=== PATIENT | female | born 1955 | race Caucasian/White ===

== ENCOUNTER 2023-02-20 08:15 | Outpatient (CLI) | payer MEDICARE, BC, SELFPAY | END 2023-02-20 08:16 | disposition home or self-care (01) | LOC: NFLDREF 02-21 15:02 | PROVIDERS: PCP Family Medicine; Referring Provider Family Medicine; Visit Provider Family Medicine | DX: E03.9 Hypothyroidism, unspecified (principal) | CPT/HCPCS: 84439; 84443 ==

== ENCOUNTER 2023-05-12 08:08 | Outpatient (CLI) | payer MEDICARE, BC, SELFPAY | END 2023-05-12 08:09 | disposition home or self-care (01) | LOC: NFLDREF 05-13 13:03 | PROVIDERS: PCP Family Medicine; Referring Provider Family Medicine; Visit Provider Family Medicine | DX: E03.9 Hypothyroidism, unspecified (principal) | CPT/HCPCS: 84443 ==

== ENCOUNTER 2024-02-21 08:15 | Outpatient (CLI) | payer MEDICARE, BC, SELFPAY ==
--- OUTSIDE RECORDS SUMMARY | 2024-02-28 14:07 | XMS_ITS | Referral Summary ---
Author Organization [facility] Address [address] [place] [address] Care Team Providers Care Precipitator Operator Name Role Phone Unavailable Primary Care Provider Unavailabl e Source Comments Patient records contain information from all sites at [facility]. For routine questions regarding patient records, call [phone] during business hours, M-F 8:00 AM - 5:00 PM Central Time. Record requests for emergency care only can be directed to [phone] at any time.[facility] Encounters Date Type Department Care Team Description 01/22/2024 8:45 AM CDT Office Visit Department of Dermatology in [address] [phone] Caden Higuera M.D. Keratosis Actinic (Primary Dx); Nevi Multiple; Keratosis Seborrheic Discharge Disposition: Home or Self Care from Last 3 Months Allergies Active Allergy Reactions Criticality Noted Date Comments Codeine GI intolerance Low 06/12/2020 Medications Medication Sig Dispensed Refills Start Date End Date Status levothyroxine (SYNTHROID) 88 mcg tablet Take 1 tablet by mouth daily. 03/16/2017 Active cholecalciferol (cholecalciferol) 1,000 Unit tablet Take 3 tablets by mouth every other day. 03/16/2017 Active lisinopril (PRINIVIL,ZESTRIL) 5 mg tablet Take 1 tablet by mouth daily. 03/16/2017 Active calcium carbonate/vitamin D3 (CALCIUM 600 + D,3, ORAL) One tablet by mouth every other day; Strength Unknown 12/29/2010 Active acetaminophen (TYLENOL) 500 mg tablet Take 2 tablets (1,000 mg total) by mouth every 6 (six) hours. 30 tablet 07/21/2018 Active Additional Information Patient not taking.Reported on 01/22/2024 sennosides-docusat e sodium (SENOKOT-S) 8.6-50 mg per tablet Take 1 tablet by mouth 2 (two) times a day. 30 tablet 07/21/2018 Active Additional Information Patient not taking.Reported on 01/22/2024 oxyCODONE (ROXICODONE) 5 mg immediate release tabletIndications: Acute Pain Exception Indication: Acute Pain Exception. Take 1-2 tablets every 4 hours for pain not controlled by Tylenol. 20 tablet 07/21/2018 Active Additional Information Patient not taking.Reported on 01/22/2024 cefadroxil (DURICEF) 500 mg capsule Take 1 capsule (500 mg total) by mouth 2 (two) times a day. Take until drains removed. 30 capsule 1 07/21/2018 Active Additional Information Patient not taking.Reported on 01/22/2024 montelukast (SINGULAIR) 10 mg tablet Take 1 tablet (10 mg total) by mouth at bedtime. 42 tablet 07/25/2018 Active mupirocin (BACTROBAN) 2 % ointment 07/11/2018 Active pimecrolimus (ELIDEL) 1 % creamIndications:R osacea Apply 1 application topically 2 (two) times a day. For rosacea. 30 g 3 09/06/2018 Active amoxicillin (AMOXIL) 500 mg tablet Take 1 tablet (500 mg total) by mouth 4 (four) times a day as needed (Take 4 tablets one hour before dental procedures) for up to 1 dose. 8 tablet 5 12/14/2018 Active Additional Information Patient not taking.Reported on 01/22/2024 cholecalciferol (VITAMIN D3) 50 mcg (2,000 Unit) tablet Take 2,000 Units by mouth as directed. Every other day Active EPINEPHrine 0.3 mg/0.3 mL injection syringe Once 02/21/2020 Active levothyroxine (SYNTHROID, LEVOTHROID) 100 mcg tablet Active multivitamin capsule Take 1 capsule by mouth daily. Multivitamin includes, fish oil, tumeric, vitamin b and other vitamins Active calcium carbonate-vitamin D3 (Calcium 500 + D) 1,250 mg (500 mg calcium)-5 mcg (200 Unit) per tablet Take 1 tablet by mouth daily with breakfast. Active Hospital, Clinic, or Other Facility Administered Medication Ordered Dose Route Frequency Start Date End Date Status lidocaine-EPINEPHrine 1%-1:200,000 injection 2-50 mL (XYLOCAINE W/EPI) 2 - 50 mL inj As needed 06/28/2019 Acti ve fsbjsoptphr-pipxinpng-SCXIXSA rine 0.25%-1%-1:200,000 injection 2-25 mL 2 - 25 mL inj As needed 06/28/2019 Active Active Problems Problem Noted Date Diagnosed Date Hypertension NOS 07/20/2018 Pectus Excavatum 07/20/2018 Scoliosis 07/20/2018 Contracture Breast Implant Initial 06/25/2018 Overview: Added automatically from request for surgery [id number] Immunizations Name Administration Dates Next Due influenza vaccine quad (FLUZ ONE/FLUARIX) (6 months and older)(PF) 06/22/2018 Social History Tobacco Use Types Packs/Day Years Used Date Smoking Tobacco: Never Smokeless Tobacco: Never Tobacco Cessation:Counseling Given: Not Answered Alcohol Use Standard Drinks/Week Comments Yes 0 (1 standard drink = 0.6 oz pur e alcohol) per week [facility] Utilities Answer Date Recorded In the past 12 months has [employer], gas, oil, or water [employer] threatened to shut off services in your home? No 01/17/2024 Humiliation, Afraid, Rape, and Kick questionnair e Answer Date Recorded Within the last year, have y ou been afraid of your partner or ex-partner? No 11/09/2022 Within the last year, have y ou been humiliated or emotionally abused in other ways by your partner or ex-partner? No Within the last year, have y ou been kicked, hit, slapped, or otherwise physically hurt by your partner or ex-partner? No 11/09/2022 Within the last year, have y ou been raped or forced to have any kind of sexual activity by your partner or ex-partner? No 11/09/2022 Social Connection and Isolat ion Panel [NHANES] Answer Date Recorded In a typical week, how many times do you talk on the phone with family, friends, or neighbors? More than three times a week 11/09/2022 How often do you get togethe r with friends or relatives? Three times a week 11/09/2022 How often do you attend chur or mosque services? Patient declined 11/09/2022 Do you belong to any clubs o r organizations such as gnosticist groups, unions, fraternal or athletic groups, or school groups? Yes 11/09/2022 How often do you attend meet ings of the clubs or organizations you belong to? More than 4 times per year 11/09/2022 Are you , , di vorced, , never , or living with a partner? 11/09/2022 AUDIT-C Answer Date Recorded Q1: How often do you have a drink containing alc ohol? Monthly or less 11/09/2022 Q2: How many drinks containi ng alcohol do you have on a typical day when you are drinking? 1 or 2 11/09/2022 Q3: How often do you have si x or more drinks on one occasion? Never 11/09/2022 Overall Financial Resource Strain (CARDIA) Answe r Date Recorded How hard is it for you to pa y for the very basics like food, housing, medical care, and heating? Not hard at all 11/09/2022 [facility] - Occupational Stress Questionnaire Answer Date Recorded Do you feel stress - tense, restless, nervous, or anxious, or unable to sleep at night because your mind is troubled all the time - these days? Only a little 11/09/2022 Exercise Vital Sign Answer Date Recorde d On average, how many days pe r week do you engage in moderate to strenuous exercise (like a brisk walk)? 5 days 01/17/2024 On average, how many minutes do you engage in exercise at this level? 90 min 01/17/2024 Hunger Vital Sign Answer Date Recorded Within the past 12 months, y ou worried that your food would run out before you got the money to buy more. Never true 01/17/20 24 Within the past 12 months, t he food you bought just didn't last and you didn't have money to get more. Never true 01/17/2024 PRAPARE - Transportation Answer Date Re corded In the past 12 months, has l ack of transportation kept you from medical appointments or from getting medications? No 01/02 In the past 12 months, has l ack of transportation kept you from meetings, work, or from getting things needed for daily living? No 01/17/2024 Nutrition Answer Date Recorded On average, how many serving s of fruits and vegetables do you eat per day (serving size is equal to 1 cup or approximately the size of a tennis ball)? 3-5 01/17/2024 Dental Answer Date Recorded Dental: Regular Dentist Yes 11/10/19 Employment Answer Date Recorded Employment status Retired 01/17/2024 Housing Stability Answer Date Recorded What is your living situation today? I have a [facility] place to live 01/17/2024 Education Answer Date Recorded What is the highest level of school you have completed or the highest degree you have received? Bachelor's degree (e.g., BA, AB, BS) 11/09/2022 Sex and Gender Information Value Date Recorded Sex Assigned at Female 06/21/2018 7:48 PM CDT Gender Identity Female 06/21/2018 7:48 PM CDT Sexual Orientation Straight 06/21/2018 7: 48 PM CDT Last Filed Vital Signs Vital Sign Reading Time Taken Comments Blood Pressure 160/88 06/28/2019 12:00 PM CDT Pulse 71 06/28/2019 12:00 PM CDT Temperature 36.8 ??C (98.24 ??F) 07/21/2018 12:15 PM PREFITTER Respiratory Rate 16 07/21/2018 12:15 PM PREFITTER Oxygen Saturation 99% 07/21/2018 12:15 PM PREFITTER Inhaled Oxygen Concentration - - Weight 54.6 kg (120 lb 5.9 oz) 07/20/2018 9:43 A M PREFITTER Height 163 cm (5' 4.17) 07/20/2018 9:43 AM PREFITTER Body Mass Index 20.55 07/20/2018 9:43 AM PREFITTER Plan of Treatment Upcoming Encounters Date Type Department Care Team (Late st Contact Info) Description 08/05/2024 8:15 AM PREFITTER Office Visit Department of Dermatology in [address] [phone] Caden Higuera M.D. [address] [place] [address] [phone] (work) Discharge Disposition: Home or Self Care Medical Devices Implanted Type Area Museum Librarian Device Identifier Shelf Expiration Date Model / Serial / Lot Jd Ngo Cohesive Breast Implant Implanted:Qt y: 1 on 07/20/2018 by Amelia Leal M.D., D.D.S. at [facility] Breast Implant Right: Breast [employer] [id number] 03/30/2023 [id number]-285 / [id number] / Clp Hrzn Ti 6 Clp Md Mejia - [id number] Implanted:Qt y: 1 on 07/20/2018 by Amelia Leal M.D., D.D.S. at [facility] Hardware e.g. pins/screws /rods Right: Breast [employer] [id number] 03/27/2023 [id number] / / [id number] Clp Hrzn Ti 6 Clp Sm Red - [id number] Implanted:Qt y: 1 on 07/20/2018 by Amelia Leal M.D., D.D.S. at [facility] Hardware e.g. pins/screws /rods Right: Breast Weck (Div of [employer]) [id number] 12/15/2022 [id number] / / [id number] Clp Hrzn Ti 6 Clp Md Mejia - [id number] Implanted:Qt y: 1 on 07/20/2018 by Amelia Leal M.D., D.D.S. at [facility] Hardware e.g. pins/screws /rods Right: Breast [employer] [id number] 03/14/2023 [id number] / / [id number] Clp Hrzn Ti 6 Clp Sm Red - [id number] Implanted:Qt y: 1 on 07/20/2018 by Amelia Leal M.D., D.D.S. at [facility] Hardware e.g. pins/screws /rods Right: Breast Weck (Div of [employer]) [id number] 12/15/2022 1201 / / [id number] Explanted Type Area Museum Librarian Device Identifier Shelf Expiration Date Model / Serial / Lot Breast Implant Explanted:Qty : 1 on 07/20/2018 by Amelia Leal M.D., D.D.S. at [facility] Breast Implant Right: Breast Procedures Procedure Name Priority Date/Time Associated Diagnosis Comments BI BREAST SCREENING BILATERAL WITH TOMOSYNTHESIS RAD - Routine (most inpatients and all outpatients) 08/21/2023 1:42 PM PREFITTER Screening Mammogram Breast Cancer HEMOGLOBIN A1C, B Routine 06/22/2018 10: 57 AM CDT Counseling Preventive from Last 3 Months or Most Recently Relevant to Health Maintenance Results * BI Breast Screening Bilateral with Tomosynthesis (08/21/2023 1:42 PM PREFITTER) Anatomical Region Laterality Modality Breast, Breast Imaging RST L OS, Breast Imaging ARZ LOS, Breast Imaging FLA LOS Bilateral Mammography Impressions 08/24/2023 10:00 AM PREFITTER Negative. RECOMMENDATION: ??Annual Screening Mammogram ASSESSMENT: ??BI-RADS: 1: Negative. Narrative 08/24/2023 10:00 AM PREFITTER EXAM: ??BI BREAST SCREENING BILATERAL WITH TOMOSYNTHESIS Current study was evaluated with a Computer Aided Detection (CAD) system. INDICATION: ??Screening mammogram. COMPARISON: ??Prior exam(s) were available and reviewed for comparison. DENSITY: ??b. There are scattered areas of fibroglandular density. FINDINGS: ??No findings of malignancy. ??No significant change since prior exam. Right breast implant. Procedure Note Fabiola White M.D. - 08/24/2023 EXAM: BI BREAST SCREENING BILATERAL WITH TOMOSYNTHESIS Current study was evaluated with a Computer Aided Detection (CAD) system. INDICATION: Screening mammogram. COMPARISON: Prior exam(s) were available and reviewed for comparison. DENSITY: b. There are scattered areas of fibroglandular density. FINDINGS: No findings of malignancy. No significant change since priorexam. Right breast implant. IMPRESSION: Negative. RECOMMENDATION: Annual Screening Mammogram ASSESSMENT: BI-RADS: 1: Negative. Meek Romeo M.D. IMG BI PROCEDUR ES * Hemoglobin A1c (06/22/2018 10:57 AM CDT) Hemoglobin A1c, B 5.4 4.0 - 5.6 % 06/22/2018 11:45 AM CDT [facility] Blood (Blood, Venous) 06/22/2018 10:57 AM CDT 06/22/2018 11:18 AM CDT Sienna Stephens M.D., M.P.H. LAB BLOOD A DD-ON [facility] [address] [place] [address], [facility] from Last 3 Months or Most Recently Relevant to Health Maintenance
--- OUTSIDE RECORDS SUMMARY | 2024-02-28 14:07 | XMS_ITS | Clinical Summary ---
Author Organization [facility] Address [place], [place] [address] Care Team Providers Care Cable Rigger Name Role Phone Ted Marshall MD Primary Care Provider Family History Medical History Relation Name Comments Cancer-prostate Brother early 40's y rs old Cancer-breast Paternal Grandmother post m yolande Cancer No Family History Cancer-colon No Family History Cancer-ovarian No Family History Relation Name Status Comments Brother Paternal Grandmother Social History Tobacco Use Types Packs/Day Years Used Date Smoking Tobacco: Never Assessed Sex and Gender Information Value Date Recorded Sex Assigned at Not on file Gender Identity Not on file Sexual Orientation Not on file Obstetrics History Plan of Treatment Not on file Care Teams Cable Rigger Relationship Specialty Start Date End Date Ted Marshall MD [address] [place] [phone] PCP - General 03/09/06
--- OUTSIDE RECORDS SUMMARY | 2024-02-28 14:07 | XMS_ITS ---
Author Organization [facility] Address [address] [place] [address] Care Team Providers Care Rand Cementer Name Role Phone Unavailable Unavailable Unavailable Surgery Details Not on file Complications Check Surgery Details section. Procedure Estimated Blood Loss Check Surgery Details section. Procedure Findings Check Surgery Details section. Procedure Specimens Taken Check Surgery Details section.
--- OUTSIDE RECORDS SUMMARY | 2024-02-28 14:07 | XMS_ITS | Encounter Summary ---
Author Organization [facility] Address [address] [place] [address] Care Team Providers Care Operations Forester Name Role Phone Unavailable Primary Care Provider Unavailabl e Reason for Referral * Outpatient (Routine) - Authorized Specialty Diagnoses / Procedures Referred By Max deras Referred To Contact Dermatology Caden Higuera M.D. [address] [place] [phone] [facility] Referral ID Status Reason Start Date Expiration Date V isits Requested Visits Authorized [id number] Authorized 01/22/2024 07/23/2025 1 1 Scheduling Instructions skin cancer recheck in 6-12 months Reason for Visit * Reason Comments Skin Check Encounter Details Date Type Department Care Team ([facility] st Contact Info) Description 01/22/2024 8:45 AM CDT Office Visit Department of Dermatology in [address] [phone] Caden Higuera M.D. [address] [place] [phone] Keratosis Actinic (Primary Dx); Nevi Multiple; Keratosis Seborrheic Discharge Disposition: Home or Self Care Social History Tobacco Use Types Packs/Day Years Used Date Smoking Tobacco: Never Smokeless Tobacco: Never Alcohol Use Standard Drinks/Week Comments Yes 0 (1 standard drink = 0.6 oz pur e alcohol) per week [facility] Utilities Answer Date Recorded In the past 12 months has th e electric, gas, oil, or water company threatened to shut off services in your [...] week 11/09/2022 How often do you attend [facility] or [facility] services? Patient declined 11/09/2022 Do you belong to any clubs o r organizations such as sikh groups, unions, fraternal or athletic groups, or [...] and heating? Not hard at all 11/09/2022 [facility] - Occupational Stress [...] Date Recorded Dental: Regular Dentist Yes 11/10/19 23 Employment Answer Date Recorded Employment status Retired 01/17/2024 Housing Stability Answer Date Recorded What is your living situation today? I have a [facility] place to live 01/17/2024 Education Answer Date Recorded What is the highest level of school you have completed or the highest degree you have received? Bachelor's degree (e.g., BA, AB, BS) 11/09/2022 Sex and Gender Information Value Date Recorded Sex Assigned at Female 06/21/2018 7:48 PM CDT Gender Identity Female 06/21/2018 7:48 PM CDT Sexual Orientation Straight 06/21/2018 7: 48 PM CDT documented as of this encounter Progress Notes * Caden Higuera M.D. - 01/22/2024 8:45 AM CDT SUBJECTIVE CHIEF COMPLAINT / REASON FOR VISIT Full skin cancer screening HISTORY OF PRESENT ILLNESS Jessica Stone is a pleasant 69 y.o. female who presents for a full skin cancer screening. The patientwas last seen by me in Dermatology clinic on 11/15/22. 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 Park at [facility]. She denies a personal or family history for melanoma. She uses sunscreen. She would particularly like us to evaluate a lesion involving the right upper central forehead today. MEDICAL HISTORY 1. Left dorsal hand: History of squamous cell carcinoma, status post wide local excision in 2008 byDr. Ellington at [facility] 2. 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 Park at [facility] 3. Negative for melanoma FAMILY HISTORY Negative for melanoma OBJECTIVE PHYSICAL EXAMINATION General: Awake, alert, in no acute distress, and with appropriate affect. Eyes: No scleral injection or icterus. No eyelid abnormalities. Lymph: No lower extremity edema. Skin: I have examined the scalp, face, neck, chest, abdomen, back, bilateral upper extremities, andbilateral lower extremities. My scribe (Francisca) served as a bear keeper for the entirety of the exam. Examination of the left dorsal hand and midline forehead reveals no evidence for recurrence of squamous cell carcinoma x 2. Examination today reveals actinic keratoses, including 1 right upper central forehead, 1 right cheek, 1 left cheek and 1 left forearm. Examination of the face, trunk and extremities reveals multiple benign-appearing nevi, lentigines and seborrheic keratoses. Examination today reveals no suspicious lesions for skin cancer. ASSESSMENT / PLAN #1 Right upper central forehead, right cheek, left cheek and left forearm: Actinic keratosis x 4 Given the precancerous nature of this lesion(s), treatment is medically indicated. After discussionof the risks, benefits and alternatives to treatment with cryotherapy, informed consent was obtained. We treated a total of four lesion(s) with two 10-second freeze-thaw cycles of liquid nitrogen cryotherapy. The patient tolerated the procedure well. Aftercare instructions were provided in written and verbal form to the patient. Should any of these lesions recur, the patient should return for biopsy or further evaluation. Follow up in 1-2 months for recheck if these areas do not complete resolve. #2 Face, trunk and extremities: Multiple nevi and lentigines The ABCDE criteria for melanoma was reviewed with the patient. None of the patient's nevi reach theclinical threshold for biopsy. I recommend continued sun protection, self-skin examinations, and observation. Should any of the patient's nevi change in size, color, texture, or shape or develop symptoms such as itching or bleeding, I recommend an immediate return visit for reassessment. #3 Face, trunk and extremities: Seborrheic keratosis The benign nature of the skin lesion(s) was discussed with the patient. No treatment is required. Irecommend continued observation. Should this lesion change in size, color, texture, or shape or develop symptoms such as itching or bleeding, I recommend an immediate return visit for reassessment. #4 Left dorsal hand: History of squamous cell carcinoma, status post wide local excision in 2008 byDr. Ellington at [facility], no recurrence No clinical evidence of local recurrence today. Recommended monthly self-skin examinations to evaluate for new, changing, symptomatic, or otherwise worrisome lesions. Signs and symptoms of skin cancer discussed. Photoprotection was recommended. Return to Dermatology in 6-12 months for a full skin exam or immediately if any new or changing lesions are noted. #5 Midline forehead: History of pigmented seborrheic keratosis and well- differentiated superficially transected squamous cell carcinoma, status post Mohs surgery on 06/28/[address] Park at [facility], no recurrence No clinical evidence of local recurrence today. Recommended monthly self-skin examinations to evaluate for new, changing, symptomatic, or otherwise worrisome lesions. Signs and symptoms of skin cancer discussed. Photoprotection was recommended. Return to Dermatology in 6-12 months for a full skin exam or immediately if any new or changing lesions are noted. PATIENT EDUCATION: Ready to learn. No apparent learning barriers were identified. Learning preferences include listening. Explained diagnosis and treatment plan; patient/guardian of patient expressed understanding of the content. By signing my name below, I, Francisca James, attest that this documentation has been prepared underthe direction and in the presence of Caden Higuera M.D. Electronically Signed: elisha Murrell. 01/22/2024. 8:43 AM CDT. I, Caden Higuera M.D., personally performed the services described in this documentation. All medical record entries made by the scribe were at my direction and in my presence. I have reviewed the chart and discharge instructions (if applicable) and agree that the record reflects my personal performance and is accurate and complete. Caden Higuera M.D. Scribed for Caden Higuera M.D. by Francisca James, on 01/22/2024, 9:11 AM CDT. documented in this encounter Plan of Treatment Upcoming Encounters Date Type Department Care Team (Late st Contact Info) Description 08/05/2024 8:15 AM WOOL HAT FINISHER Office Visit Department of Dermatology in [address] [phone] Caden Higuera M.D. [address] [place] [address] Discharge Disposition: Home or Self Care Scheduled Referrals Name Type Priority Associated Diagnoses Order Schedule Dermatology office visit (clinic) Outpatient Referral Routine Expected: 07/24/2024 (Approximate), Expires: 04/23/2025 documented as of this encounter Visit Diagnoses Diagnosis Keratosis Actinic- Primary Nevi Multiple Keratosis Seborrheic documented in this encounter
--- OUTSIDE RECORDS SUMMARY | 2024-02-28 14:07 | XMS_ITS | Clinical Summary ---
Author Organization [facility] Address [address] [place] [address] Care Team Providers Care Radiology Scheduler Name Role Phone Unavailable Primary Care Provider Unavailabl e Source Comments Patient records contain information from all sites at [facility]. For routine questions regarding patient records, call [phone] during business hours, M-F 8:00 AM - 5:00 PM Central Time. Record requests for emergency care only can be directed to [phone] at any time.[facility] Allergies Active Allergy Reactions Criticality Noted Date [...] mL inj As needed 06/28/2019 Acti ve bkgzdgylafz-rwvxiextb-ZUTSOKY rine 0.25%-1%-1:200,000 injection 2-25 mL 2 - 25 mL inj As needed 06/28/2019 Active Active Problems Problem Noted Date Diagnosed Date Hypertension NOS 07/20/2018 Pectus Excavatum 07/20/2018 Scoliosis 07/20/2018 Contracture Breast Implant Initial 06/25/2018 Overview: Added automatically from request for surgery [id number] Encounters Date Type Department Care Team Description 01/22/2024 8:45 AM CDT Office Visit Department of Dermatology in [address] [phone] Caden Higuera M.D. Keratosis Actinic (Primary Dx); Nevi Multiple; Keratosis Seborrheic Discharge Disposition: Home or Self Care from Last 3 Months Immunizations Name Administration Dates Next Due influenza vaccine quad (FLUZ ONE/FLUARIX) (6 months and older)(PF) 06/22/2018 Family History Medical History Relation Name Comments Squamous cell carcinoma Brother Coronary artery disease Father krissy Dementia Father krissy Hypertension Father krisys Coronary artery disease Mother елена Hypertension Mother елена Thyroid disease Mother елена Ovarian cancer Paternal Grandmother Hypertension Sister derian Thyroid disease Sister derian Relation Name Status Comments Brother Father krissy Mother елена Paternal Grandmother Other Age 68 Sister derian Social History Tobacco Use Types Packs/Day Years Used Date Smoking Tobacco: Never Smokeless Tobacco: Never Tobacco Cessation:Counseling Given: Not Answered Alcohol Use Standard Drinks/Week Comments Yes 0 (1 standard drink = 0.6 oz pur e alcohol) per week [facility] Utilities Answer Date Recorded In the past 12 months has e [facility], oil, or water [employer] threatened to shut off services in your [...] week 11/09/2022 How often do you attend [facility] or confucianism services? Patient declined 11/09/2022 Do you belong to any clubs o r organizations such as episcopal groups, unions, fraternal or athletic groups, or [...] and heating? Not hard at all 11/09/2022 [facility] of Occupat ionri Health - Occupational Stress Questionnaire Answer Date [...] your living situation today? I have a [facility] place to live 01/17/2024 Education Answer Date [...] 36.8 ??C (98.24 ??F) 07/21/2018 12:15 PM RACETRACK STEWARD Respiratory Rate 16 07/21/2018 12:15 PM RACETRACK STEWARD Oxygen Saturation 99% 07/21/2018 12:15 PM RACETRACK STEWARD Inhaled Oxygen Concentration - - Weight 54.6 kg (120 lb 5.9 oz) 07/20/2018 9:43 A M RACETRACK STEWARD Height 163 cm (5' 4.17) 07/20/2018 9:43 AM RACETRACK STEWARD Body Mass Index 20.55 07/20/2018 9:43 AM RACETRACK STEWARD Plan of Treatment Upcoming Encounters Date Type Department Care Team (Late st Contact Info) Description 08/05/2024 8:15 AM RACETRACK STEWARD Office Visit Department of Dermatology in [address] [phone] Caden Higuera M.D. [address] [place] [address] Discharge Disposition: Home or Self Care Health Maintenance Due Date Last Done Comments Bone Density Scan (Osteoporo sis Screen) 1957 CT Colonography 1957 Cologuard 1957 Colonoscopy 1957 Colorectal Cancer Screening 1957 Creatinine Level (Kidney Fun ction Test) 1957 FIT 1957 Hepatitis C Screening 1957 Office Visit for Blood Press ure Check / Re-check 1957 Potassium Level 1957 Sodium Level 1957 Thyroid Stimulating Hormone (TSH) test for thyroid function 1957 Fasting Glucose for Diabetes Screening 06/22/2021 06/22/2018 COVID-19 Vaccine (2022-2 4 season) 2023 06/04/2022, 08/09/2021, 09/30/2020, Additional history exists Influenza Vaccine (#1) 2023 , 06/30/2021, 06/18/2021, Additional history exists Depression Screening (Annual PHQ-2) 09/04/2023 Fall Risk Screen (Annual) 09/04/2023 Mammogram 08/21/2024 08/21/2023, 12/0 05/2022, 08/11/2021, Additional history exists DTaP,Tdap,and Td Vaccines (2 - Td or Tdap) 01/01/2025 01/01/2015 Pneumococcal vaccine (65+ years) Completed 01/15/20, 01/01/2015 Zoster Vaccines Completed 07/06/2022, 03/28/2022 Cervical Cancer Screening Discontinued 02/02/2023, Medical Devices Implanted Type Area Floor Sweeper Device Identifier Shelf Expiration Date Model / Serial / Lot Jd Inspira Cohesive Breast Implant Implanted:Qt y: 1 on 07/20/2018 by Amelia Leal M.D., D.D.S. at [facility] Breast Implant Right: Breast [employer] [id number] 03/30/2023 SCX-285 / [id number] / Clp Hrzn Ti 6 Clp Mejia - [id number] Implanted:Qt y: 1 on 07/20/2018 by Amelia Leal M.D., D.D.S. at [facility] Hardware e.g. pins/screws /rods Right: Breast [employer] [id number] 03/27/2023 [id number] / / [id number] Clp Hrzn Ti 6 Clp Sm Red - [id number] Implanted:Qt y: 1 on 07/20/2018 by Amelia Leal M.D., D.D.S. at [facility] Hardware e.g. pins/screws /rods Right: Breast Weck (Div of [employer]) [id number] 12/15/2022 120 / / [id number] Clp Hrzn Ti 6 Clp Mejia - [id number] Implanted:Qt y: 1 on 07/20/2018 by Amelia Leal M.D., D.D.S. at [facility] Hardware e.g. pins/screws /rods Right: Breast [employer] [id number] 03/14/2023 [id number] / / [id number] Clp Hrzn Ti 6 Clp Sm Red - [id number] Implanted:Qt y: 1 on 07/20/2018 by Amelia Leal M.D., D.D.S. at [facility] Hardware e.g. pins/screws /rods Right: Breast Weck (Div of [employer]) [id number] 12/15/2022 120 / / [id number] Explanted Type Area Floor Sweeper Device Identifier Shelf Expiration Date Model / Serial / Lot Breast Implant Explanted:Qty : 1 on 07/20/2018 by Amelia Leal M.D., D.D.S. at [facility] Breast Implant Right: Breast Procedures Procedure Name Priority Date/Time Associated Diagnosis Comments BI BREAST SCREENING BILATERAL WITH TOMOSYNTHESIS RAD - Routine (most inpatients and all outpatients) 08/21/2023 1:42 PM RACETRACK STEWARD Screening Mammogram Breast Cancer HEMOGLOBIN A1C, B Routine 06/22/2018 10: 57 AM CDT Counseling Preventive from Last 3 Months or Most Recently Relevant to Health Maintenance Results * BI Breast Screening Bilateral with Tomosynthesis (08/21/2023 1:42 PM RACETRACK STEWARD) Anatomical Region Laterality Modality Breast, Breast Imaging RST L OS, Breast Imaging ARZ LOS, Breast Imaging FLA LOS Bilateral Mammography Impressions 08/24/2023 10:00 AM RACETRACK STEWARD Negative. RECOMMENDATION: ??Annual Screening Mammogram ASSESSMENT: ??BI-RADS: 1: Negative. Narrative 08/24/2023 10:00 AM RACETRACK STEWARD EXAM: ??BI BREAST SCREENING BILATERAL WITH TOMOSYNTHESIS [...] Screening Mammogram ASSESSMENT: BI-RADS: 1: Negative. Meek RAND BI PROCEDUR ES * Hemoglobin A1c (06/22/2018 10:57 AM CDT) Hemoglobin A1c, B 5.4 4.0 - 5.6 % 06/22/2018 11:45 AM CDT [facility] Blood (Blood, Venous) 06/22/2018 10:57 AM CDT 06/22/2018 11:18 AM CDT Sienna Stephens M.D., M.P.H. LAB BLOOD A DD-ON [facility] [address] from Last 3 Months or Most Recently Relevant to Health Maintenance
== END 2024-02-21 08:16 | disposition home or self-care (01) ==
LOC: NFLDREF 02-28 14:05
PROVIDERS: PCP Family Medicine; Referring Provider Family Medicine; Visit Provider Family Medicine
DX: E78.5 Hyperlipidemia, unspecified (principal); M81.0 Age-related osteoporosis without current pathological fracture; E03.9 Hypothyroidism, unspecified
CPT/HCPCS: 80061; 82306; 84443

== ENCOUNTER 2024-04-03 13:44 | Outpatient (CLI) | payer MEDICARE, BC, SELFPAY ==
--- OUTSIDE RECORDS SUMMARY | 2024-04-03 13:48 | XMS_ITS | Encounter Summary ---
Author Organization [facility] Address [address] [place] [address] Care Team Providers Care Supervisor Safety Deposit Name Role Phone Unavailable Primary Care Provider Unavailabl e Reason for Referral * Outpatient (Routine) - Authorized Specialty Diagnoses / Procedures Referred By Max deras Referred To Contact Dermatology Caden Higuera M.D. [address] [place] [phone] [facility] Referral ID Status Reason Start Date Expiration Date V isits Requested Visits Authorized [id number] Authorized 01/22/2024 07/23/2025 1 1 Scheduling Instructions skin cancer recheck in 6-12 months Reason for Visit * Reason Comments Skin Check Encounter Details Date Type Department Care Team ([facility] st Contact Info) Description 01/22/2024 8:45 AM CDT Office Visit Department of Dermatology in [address] [phone] Caden Higuera M.D. [address] [place] [phone] Keratosis Actinic (Primary Dx); Nevi Multiple; Keratosis Seborrheic Discharge Disposition: Home or Self Care Social History Tobacco Use Types Packs/Day Years Used Date Smoking Tobacco: Never Smokeless Tobacco: Never Alcohol Use Standard Drinks/Week Comments Yes 0 (1 standard drink = 0.6 oz pur e alcohol) per week [facility] Utilities Answer Date Recorded In the [...] week 11/09/2022 How often do you attend [facility] or orthodox services? Patient declined 11/09/2022 Do you belong to any clubs o r organizations such as jew groups, unions, fraternal or athletic groups, or [...] and heating? Not hard at all 11/09/2022 [facility] of Occupat ional Health - Occupational Stress [...] your living situation today? I have a [facility] place to live 01/17/2024 Education Answer [...] surgery on 06/28/[address] Park at [facility]. She denies a personal or family history for melanoma. She uses sunscreen. She would particularly like us to evaluate a lesion involving the right upper central forehead today. MEDICAL HISTORY 1. Left dorsal hand: History of squamous cell carcinoma, status post wide local excision in 2008 byDr. Ellington at [facility] 2. 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 Park at [facility] 3. Negative for melanoma FAMILY HISTORY Negative for melanoma OBJECTIVE PHYSICAL EXAMINATION General: Awake, alert, in no acute distress, and with appropriate affect. Eyes: No scleral injection or icterus. No eyelid abnormalities. Lymph: No lower extremity edema. Skin: I have examined the scalp, face, neck, chest, abdomen, back, bilateral upper extremities, andbilateral lower extremities. My scribe (Francisca) served as a spray painting machine operator for the entirety of the exam. Examination [...] local excision in 2008 byDr. Ellington at [facility], no recurrence No clinical evidence of local [...] surgery on 06/28/[address] Park at [facility], no recurrence No clinical evidence of local [...] st Contact Info) Description 08/05/2024 8:15 AM ELDER COUNSELOR Office Visit Department of Dermatology in [address] [phone] Caden Higurea M.D. [address] [place] [phone] Discharge Disposition: Home or Self Care Scheduled Referrals Name Type Priority Associated Diagnoses Order Schedule Dermatology office visit (clinic) Outpatient Referral Routine Expected: 07/24/2024 (Approximate), Expires: 04/23/2025 documented as of this encounter Visit Diagnoses Diagnosis Keratosis Actinic- Primary Nevi Multiple Keratosis Seborrheic documented in this encounter
--- OUTSIDE RECORDS SUMMARY | 2024-04-03 13:48 | XMS_ITS | Clinical Summary ---
Author Organization [facility] Address [address] [place] [address] Care Team Providers Care Correspondence Renew Clerk Name Role Phone Unavailable Primary Care Provider Unavailabl e Source Comments Patient records contain information from all sites at [facility]. For routine questions regarding patient records, call [phone] during business hours, M-F 8:00 AM - 5:00 PM Central Time. Record requests for emergency care only can be directed to [phone] at any time.[facility] Allergies Active Allergy Reactions Criticality Noted Date [...] mL inj As needed 06/28/2019 Acti ve olcrwnfsida-mjbkdebfu-DCRZKAK rine 0.25%-1%-1:200,000 injection 2-25 mL 2 - 25 mL inj As needed 06/28/2019 Active Active Problems Problem Noted Date Diagnosed Date Hypertension NOS 07/20/2018 Pectus Excavatum 07/20/2018 Scoliosis 07/20/2018 Contracture Breast Implant Initial 06/25/2018 Overview (06/25/2018): Added automatically from request for surgery [id number] Encounters Date Type Department Care Team Description 01/22/2024 8:45 AM CDT Office Visit Department of Dermatology in [address] [phone] Caden Higuera M.D. Keratosis Actinic (Primary Dx); Nevi Multiple; Keratosis Seborrheic Discharge Disposition: Home or Self Care from Last 3 Months Immunizations Name Administration Dates Next Due influenza vaccine quad (FLUZ ONE/FLUARIX) (6 months and older)(PF) 06/22/2018 Family History Medical History Relation Name Comments Squamous cell carcinoma Brother Coronary artery disease Father krissy Dementia Father krissy Hypertension Father krissy Coronary artery disease Mother елена Hypertension Mother [...] 0.6 oz pur e alcohol) per week [facility] Utilities Answer Date Recorded In the past 12 months has [facility] [employer], oil, or water [employer] threatened to shut off services in your [...] week 11/09/2022 How often do you attend [facility] or christian services? Patient declined 11/09/2022 Do you belong to any clubs o r organizations such as catholic groups, unions, fraternal or athletic groups, or [...] and heating? Not hard at all 11/09/2022 [facility] of Occupat ional Health - Occupational Stress [...] your living situation today? I have a [facility] place to live 01/17/2024 Education Answer [...] 36.8 ??C (98.24 ??F) 07/21/2018 12:15 PM POLICY SERVICES REPRESENTATIVE Respiratory Rate 16 07/21/2018 12:15 PM POLICY SERVICES REPRESENTATIVE Oxygen Saturation 99% 07/21/2018 12:15 PM POLICY SERVICES REPRESENTATIVE Inhaled Oxygen Concentration - - Weight 54.6 kg (120 lb 5.9 oz) 07/20/2018 9:43 A M POLICY SERVICES REPRESENTATIVE Height 163 cm (5' 4.17) 07/20/2018 9:43 AM POLICY SERVICES REPRESENTATIVE Body Mass Index 20.55 07/20/2018 9:43 AM POLICY SERVICES REPRESENTATIVE Plan of Treatment Upcoming Encounters Date Type Department Care Team (Late st Contact Info) Description 08/05/2024 8:15 AM POLICY SERVICES REPRESENTATIVE Office Visit Department of Dermatology in [address] [phone] Caden Higuera M.D. [address] [place] [address] Discharge Disposition: Home or Self Care Health [...] for Diabetes Screening 06/22/2021 06/22/2018 COVID-19 Vaccine ( - 2022-2 4 season) 2023 06/04/2022, 08/09/2021, 09/30/2020, Additional history exists Depression Screening (Annual PHQ-2) 09/04/2023 Fall Risk Screen (Annual) 09/04/2023 Influenza Vaccine (#1) 2024 , 06/30/2021, 06/18/2021, Additional history exists Mammogram 08/21/2024 08/21/2023, 1205/2022, 08/11/2021, Additional history exists DTaP,Tdap,and Td Vaccines (2 - Td or Tdap) 01/01/2025 01/01/2015 Pneumococcal vaccine (65+ years) Completed 01/15/20, 01/01/2015 Zoster Vaccines Completed 07/06/2022, 03/28/2022 Cervical Cancer Screening Discontinued 02/02/2023, Medical Devices Implanted Type Area Fastener Technologist Device Identifier Shelf Expiration Date Model / Serial / Lot Jd Inspira Cohesive Breast Implant Implanted:Qt y: 1 on 07/20/2018 by Amelia Leal M.D., D.D.S. at [facility] Breast Implant Right: Breast [employer] [id number] 03/30/2023 SCX-285 / [id number] / Clp Hrzn Ti 6 Clp Md Mejia - [id number] Implanted:Qt y: 1 on 07/20/2018 by Amelia Leal M.D., D.D.S. at [facility] Hardware e.g. pins/screws /rods Right: Breast [employer] [id number] 03/27/2023 [id number] / / [id number] Clp Hrzn Ti 6 Clp Sm Red - [id number] Implanted:Qt y: 1 on 07/20/2018 by Amelia Leal M.D., D.D.S. at [facility] Hardware e.g. pins/screws /rods Right: Breast Weck (Div of [employer]) [id number] 12/15/2022 120 / / [id number] Clp Hrzn Ti 6 Clp Md Mejia - [id number] Implanted:Qt y: 1 on 07/20/2018 by Amelia Leal M.D., D.D.S. at [facility] Hardware e.g. pins/screws /rods Right: Breast [employer] [id number] 03/14/2023 [id number] / / [id number] Clp Hrzn Ti 6 Clp Sm Red - [id number] Implanted:Qt y: 1 on 07/20/2018 by Amelia Leal M.D., D.D.S. at [facility] Hardware e.g. pins/screws /rods Right: Breast Weck (Div of [employer]) [id number] 12/15/2022 120 / / [id number] Explanted Type Area Fastener Technologist Device Identifier Shelf Expiration Date Model / Serial / Lot Breast Implant Explanted:Qty : 1 on 07/20/2018 by Amelia Leal M.D., D.D.S. at [facility] Breast Implant Right: Breast Procedures Procedure Name Priority Date/Time Associated Diagnosis Comments BI BREAST SCREENING BILATERAL WITH TOMOSYNTHESIS RAD - Routine (most inpatients and all outpatients) 08/21/2023 1:42 PM POLICY SERVICES REPRESENTATIVE Screening Mammogram Breast Cancer HEMOGLOBIN A1C, B Routine 06/22/2018 10: 57 AM CDT Counseling Preventive from Last 3 Months or Most Recently Relevant to Health Maintenance Results * BI Breast Screening Bilateral with Tomosynthesis (08/21/2023 1:42 PM POLICY SERVICES REPRESENTATIVE) Anatomical Region Laterality Modality Breast, Breast Imaging RST L OS, Breast Imaging ARZ LOS, Breast Imaging FLA LOS Bilateral Mammography Impressions 08/24/2023 10:00 AM POLICY SERVICES REPRESENTATIVE Negative. RECOMMENDATION: ??Annual Screening Mammogram ASSESSMENT: ??BI-RADS: 1: Negative. Narrative 08/24/2023 10:00 AM POLICY SERVICES REPRESENTATIVE EXAM: ??BI BREAST SCREENING BILATERAL WITH TOMOSYNTHESIS [...] - 5.6 % 06/22/2018 11:45 AM CDT [facility] [place] Blood (Blood, Venous) 06/22/2018 10:57 AM CDT 06/22/2018 11:18 AM CDT Sienna Stephens M.D., M.P.H. LAB BLOOD A DD-ON [facility] [place] [address] [place] [address], [facility] from Last 3 Months or Most Recently Relevant to Health Maintenance
--- OUTSIDE RECORDS SUMMARY | 2024-04-03 13:48 | XMS_ITS | Referral Summary ---
Author Organization [facility] Address [address] [place] [id number] Care Team Providers Care Acupuncture Physician Name Role Phone Unavailable Primary Care Provider Unavailabl e Source Comments Patient records contain information from all sites at [facility]. For routine questions regarding patient records, call [phone] during business hours, M-F 8:00 AM - 5:00 PM Central Time. Record requests for emergency care only can be directed to [phone] at any time.[facility] Encounters Date Type Department Care Team Description 01/22/2024 8:45 AM CDT Office Visit Department of Dermatology in [address] [phone] Caden Higuera M.D. Keratosis Actinic (Primary Dx); [...] mL inj As needed 06/28/2019 Acti ve xcazqmolefv-nudlnvfrh-FKZYRHA rine 0.25%-1%-1:200,000 injection 2-25 mL 2 - 25 mL inj As needed 06/28/2019 Active Active Problems Problem Noted Date Diagnosed Date Hypertension NOS 07/20/2018 Pectus Excavatum 07/20/2018 Scoliosis 07/20/2018 Contracture Breast Implant Initial 06/25/2018 Overview (06/25/2018): Added automatically from request for surgery [id number] Immunizations Name Administration Dates Next Due influenza vaccine quad (FLUZ ONE/FLUARIX) (6 months and older)(PF) 06/22/2018 Social History Tobacco Use Types Packs/Day Years Used Date Smoking Tobacco: Never Smokeless Tobacco: Never Tobacco Cessation:Counseling Given: Not Answered Alcohol Use Standard Drinks/Week Comments Yes 0 (1 standard drink = 0.6 oz pur e alcohol) per week [facility] Utilities Answer Date Recorded In the past 12 months has e [employer], gas, oil, or water [employer] threatened to shut off services in your [...] 11/09/2022 How often do you attend chur ch or presybeterian services? Patient declined 11/09/2022 Do you belong to any clubs o r organizations such as moravian groups, unions, fraternal or athletic groups, or [...] and heating? Not hard at all 11/09/2022 [facility] [place] of Occupat ional Health - Occupational Stress [...] your living situation today? I have a [facility] place to live 01/17/2024 Education Answer [...] 36.8 ??C (98.24 ??F) 07/21/2018 12:15 PM CHANNEL PROGRAM MANAGER Respiratory Rate 16 07/21/2018 12:15 PM CHANNEL PROGRAM MANAGER Oxygen Saturation 99% 07/21/2018 12:15 PM CHANNEL PROGRAM MANAGER Inhaled Oxygen Concentration - - Weight 54.6 kg (120 lb 5.9 oz) 07/20/2018 9:43 A M CHANNEL PROGRAM MANAGER Height 163 cm (5' 4.17) 07/20/2018 9:43 AM CHANNEL PROGRAM MANAGER Body Mass Index 20.55 07/20/2018 9:43 AM CHANNEL PROGRAM MANAGER Plan of Treatment Upcoming Encounters Date Type Department Care Team (Late st Contact Info) Description 08/05/2024 8:15 AM CHANNEL PROGRAM MANAGER Office Visit Department of Dermatology in [address] [phone] Caden Higuera M.D. [address] [place] [phone] Discharge Disposition: Home or Self Care Medical Devices Implanted Type Area Apartment Leasing Specialist Device Identifier Shelf Expiration Date Model / Serial / Lot Jd Ngo Cohesive Breast Implant Implanted:Qt y: 1 on 07/20/2018 by Amelia Leal M.D., D.D.S. at [facility] Breast Implant Right: Breast [employer] [id number] 03/30/2023 SCX-285 / [id number] / Clp Hrzn Ti 6 Clp Mejia - [id number] Implanted:Qt y: 1 on 07/20/2018 by Amelia Leal M.D., D.D.S. at [facility] Hardware e.g. pins/screws /rods Right: Breast [employer] [id number] 03/27/2023 [id number] / / [id number] Clp Hrzn Ti 6 Clp Sm Red - [id number] Implanted:Qt y: 1 on 07/20/2018 by Amelia Leal M.D., D.D.S. at [facility] Hardware e.g. pins/screws /rods Right: Breast Weck (Div of [employer]) [id number] 12/15/2022 120 / / [id number] Clp Hrzn Ti 6 Clp Mejia - [id number] Implanted:Qt y: 1 on 07/20/2018 by Amelia Leal M.D., D.D.S. at [facility] Hardware e.g. pins/screws /rods Right: Breast [employer] [id number] 03/14/2023 [id number] / / [id number] Clp Hrzn Ti 6 Clp Sm Red - [id number] Implanted:Qt y: 1 on 07/20/2018 by Amelia Leal M.D., D.D.S. at [facility] Hardware e.g. pins/screws /rods Right: Breast Weck (Div of [employer]) [id number] 12/15/2022 [id number] / / [id number] Explanted Type Area Apartment Leasing Specialist Device Identifier Shelf Expiration Date Model / Serial / Lot Breast Implant Explanted:Qty : 1 on 07/20/2018 by Amelia Leal M.D., D.D.S. at [facility] Breast Implant Right: Breast Procedures Procedure Name Priority Date/Time Associated Diagnosis Comments BI BREAST SCREENING BILATERAL WITH TOMOSYNTHESIS RAD - Routine (most inpatients and all outpatients) 08/21/2023 1:42 PM CHANNEL PROGRAM MANAGER Screening Mammogram Breast Cancer HEMOGLOBIN A1C, B Routine 06/22/2018 10: 57 AM CDT Counseling Preventive from Last 3 Months or Most Recently Relevant to Health Maintenance Results * BI Breast Screening Bilateral with Tomosynthesis (08/21/2023 1:42 PM CHANNEL PROGRAM MANAGER) Anatomical Region Laterality Modality Breast, Breast Imaging RST L OS, Breast Imaging ARZ LOS, Breast Imaging FLA LOS Bilateral Mammography Impressions 08/24/2023 10:00 AM CHANNEL PROGRAM MANAGER Negative. RECOMMENDATION: ??Annual Screening Mammogram ASSESSMENT: ??BI-RADS: 1: Negative. Narrative 08/24/2023 10:00 AM CHANNEL PROGRAM MANAGER EXAM: ??BI BREAST SCREENING BILATERAL WITH TOMOSYNTHESIS [...] - 5.6 % 06/22/2018 11:45 AM CDT [facility] Blood (Blood, Venous) 06/22/2018 10:57 AM CDT 06/22/2018 11:18 AM CDT Sienna Stephens M.D., M.P.H. LAB BLOOD A DD-ON [facility] [address] [place] [address], [facility] from Last 3 Months or Most Recently Relevant to Health Maintenance
--- OUTSIDE RECORDS SUMMARY | 2024-04-03 13:48 | XMS_ITS ---
Author Organization [facility] Address [address] [place] [address] Care Team Providers Care Radiation Oncology Nurse Name Role Phone Unavailable Unavailable Unavailable Surgery Details Not on file Complications Check Surgery Details section. Procedure Estimated Blood Loss Check Surgery Details section. Procedure Findings Check Surgery Details section. Procedure Specimens Taken Check Surgery Details section.
--- OUTSIDE RECORDS SUMMARY | 2024-04-03 13:49 | XMS_ITS | Clinical Summary ---
Author Organization [facility] Address [place], [place] [address] Care Team Providers Care Packer Name Role Phone Ted Marshall MD Primary [...] of Treatment Not on file Care Teams Packer Relationship Specialty Start Date End Date Ted Marshall MD [address] [place] [phone] PCP - General 03/09/06
--- NOTE | 2024-04-03 14:00 | CRLHL7_ITS ---
For Patients: As a result of the Century Cures Act, medical imaging exams and procedure reports are released immediately into your electronic medical record. You may view this report before your referring provider. If you have questions, please contact your health care provider. DXA BONE MINERAL DENSITY STUDY Current height (in): 64.0. Weight (lb): 130.0. Menopause age: 54. Ethnicity: White. Reason for exam: Followup osteoporosis. 1. Have you had a previous hip or vertebral fracture? No. 2. Have you had any fractures during your adult life which did not result from significant trauma (e.g., auto accident)? Yes. 3. Did either of your parents have a hip fracture? No. 4. Do you smoke? No. 5. Have you ever taken Glucocorticoids? No. 6. Do you have rheumatoid arthritis? No. 7. Do you have secondary osteoporosis? No. 8. Do you drink 3 or more alcoholic drinks per day? No. 9. Are you being treated for osteoporosis? No. 10. Have you ever taken any of the following medications: Actonel, Evista, Fosamax, Miacalcin, Reclast, Boniva, Forteo, HRT (i.e. estrogen/hormone therapy), Protelos, Prolia, Vitamin D, Calcium, other ??? please specify. ANSWER: Yes, Fosamax, vitamin D, calcium. 11. Do you have any of the following medical conditions: Anorexia or bulimia, asthma or emphysema, end stage renal disease, hyperparathyroidism, any seizure disorders, cancer, inflammatory bowel diseases, hysterectomy, other ??? please specify. ANSWER: Yes, hypothyroid, skin cancer. 12. What was your maximum height (inches)? 64.5. 13. Do you perform weight bearing exercise regularly? Yes. 14. Do you regularly consume dairy products? Yes. 15. Do you drink caffeinated beverages? No. 16. At what age did your period start? 19. 17. Are you premenopausal? No. 18. How many full-term pregnancies have you had? 2. 19. Have you ever missed your period for more than 6 months in a row (not including or menopause)? No. TECHNIQUE: Bone mineral density study was performed using the [employer]. FINDINGS: The results of the study expressed as bone mineral density (BMD) are as follows: Lumbar spine L1 to L4: BMD: 0.832 g/cm2. T-score: -2.0. Z-score: 0.0 Neck Left: BMD: 0.525 g/cm2. T-score: -2.9. Z-score: -1.3 Right: BMD: 0.588 g/cm2. T-score: -2.4. Z-score: -0.7 Total Left: BMD: 0.715 g/cm2. T-score: -1.9. Z-score: -0.5 Right: BMD: 0.754 g/cm2. T-score: -1.5. Z-score: -0.2 IMPRESSION: Osteoporosis. *Comparison exams done prior to 02/2020 were performed on different unit, [employer]. COMPARISON: Compared with scan of 02/17/2022, the bone mineral density has increased by 3.0 percent at the spine and decreased by 1.5 percent at the hip. Ion Thomas M.D. Diagnostic Radiologist [email or web address] Transcribed: 12:39 pm DW/Dictated by: Ion Thomas MD @ 04/05/2024 12:09:00 PM (Electronically Signed)
== END 2024-04-03 13:45 | disposition home or self-care (01) ==
PROVIDERS: PCP Family Medicine; Visit Provider Family Medicine
DX: M81.0 Age-related osteoporosis without current pathological fracture (principal)
CPT/HCPCS: 77080

== ENCOUNTER 2024-11-13 07:33 | Outpatient (CLI) | payer MEDICARE, BC, SELFPAY | END 2024-11-13 07:34 | disposition home or self-care (01) | LOC: NFLDREF 07:34 | PROVIDERS: PCP Family Medicine; Visit Provider Family Medicine | DX: N39.41 Urge incontinence (principal) | CPT/HCPCS: 87086 ==

== ENCOUNTER 2024-11-26 13:12 | Outpatient (CLI) | payer MEDICARE, BC, SELFPAY | END 2024-11-26 13:13 | disposition home or self-care (01) | LOC: NFLDREF 11-27 01:59 | PROVIDERS: PCP Family Medicine; Referring Provider Family Medicine; Visit Provider Family Medicine | DX: N39.41 Urge incontinence (principal) | CPT/HCPCS: 87086; 87186 ==

== ENCOUNTER 2024-12-13 15:51 | Outpatient (CLI) | payer MEDICARE, BC, SELFPAY | END 2024-12-13 15:52 | disposition home or self-care (01) | LOC: NFLDREF 12-17 03:21 | PROVIDERS: PCP Family Medicine; Referring Provider Family Medicine; Visit Provider Family Medicine | DX: N39.0 Urinary tract infection, site not specified (principal) | CPT/HCPCS: 87086 ==

== ENCOUNTER 2025-04-07 09:31 | Outpatient (CLI) | payer MEDICARE, BC, SELFPAY | END 2025-04-07 09:32 | disposition home or self-care (01) | LOC: NFLDREF 04-09 15:38 | PROVIDERS: PCP Family Medicine; Referring Provider Family Medicine; Visit Provider Family Medicine | DX: M81.0 Age-related osteoporosis without current pathological fracture (principal); E78.5 Hyperlipidemia, unspecified; I10 Essential (primary) hypertension; E55.9 Vitamin D deficiency, unspecified; R53.83 Other fatigue; Z79.899 Other long term (current) drug therapy | CPT/HCPCS: 80053; 80061; 82306; 82607; 84443 ==

== ENCOUNTER 2025-04-08 14:45 | Outpatient (RCR) | payer MEDICARE, BC, SELFPAY ==
--- NOTE | 2024-12-03 12:11 | PT.OPEX ---
[facility] [place] Outpatient Eval PT [facility] Outpatient Eval Start: 12/02/24 15:05 Freq: Status: Active Protocol: Document 12/03/24 07:04 MLS (Rec: 12/03/24 12:08 MLS [id number]) E-signed By Maria Luisa Merrill DPT Physical Therapy Outpatient Evaluation Insurance Information Recert Due Date 03/02/25 Insurance Name Medicare B,Blue Cross/Blue Shield Medical Diagnosis M62.89 other specified disorder of muscle Pelvic floor dysfunction Treating Diagnosis posterior vaginal wall prolapse grade 2, anterior vaginal wall prolapse grade 1 Pelvic floor dysfunction Referring MD Dr. Garay Subjective Subjective Patient is a 69 year old female who presents to physical therapy with signs and symptoms consistent with pelvic floor dysfunction. She states that for the last couple of years she had some urgency issues when she had to pee, she really had to go. She states that last spring she went to [place], she did a big hike through [place] and she couldn't go an hour without having to pee. She states that last April she had a UTI and that was the first one since she was in her twenties. Then she had four in a year. She states that she went on a new antibiotic and retested. She states that she did have some bacteria from her bowel, so she may have to get her hemorrhoids taking care of. She states that she has had hemorrhoids since the of her two children when she was in her forties. She states that she started on estradiol and is doing much better. She is going to see a physician after she gets back from [place] regarding her hemorrhoids and possibly get them removed. She is a pescatarian. She is doing exercises like pelvic tilts, squats, walking up to 20,000 steps. She recently got the flu and fractured two ribs and she hasn't been doing weightlifting as much. She does a lot of pelvic tilts, modified sit ups, getting on and off the floor, and Kegels. She had two incidence of total incontinence with the last trip. She states that she is leaving on the and back on the -05 of January. She notes that she thinks she has broken ribs on the right. She is not sure if she needs PT, but would like to get all muscles tested and make sure her contractions are correct. Urinary- Leakage (day/night): no Protection worn: no Activity that causes leakage ( laughing, coughing, sneezing, nathan in door, running water etc): running water Delay of urination: no Urinary urgency (any incontinence): yes, little, after coffee in the morning or after drinking lemonade Strain to start/stop urine stream: no Hydration/fluid intake: 1-1.5 cup coffee in am, 90 oz a day Daytime urination (how often): 6-8 Nocturia: no Dysuria (pain w urination): no Post-void dribble: no Pressure/heaviness: no Triggers: coffee, lemonade, hearing waves, hand washing Observation (color, odor, burning, blood, weak stream): no Bowel- Frequency: 1-2 times per day [place] chart: 4 Constipation/Diarrhea: no Observation (mucus. blood): no Do you feel bowels fully evacuate with BM: yes Fecal leakage: no Fecal urgency: no Protection used: no Straining with BM: no Pain with BM: no Do you use pressure with hands to assist with BM: no Flatus incontinence: no Abdominal/rectal pain or symptoms: no Do foods increase or decrease symptoms: sugar, bread with yeast (not since making sourdough) Do you take bowel supplements/ laxatives: no Fiber intake: lots of fruits and veg/pescatarian Diet/food intolerances: sugar, bread with yeast Sexual- Are you sexually active: yes, 5 times a week What does sex activity look like for you (penetration, dryness etc): penetration, uses lubricant with when gone Pain with sex (location, penetration, orgasm, after): only recently, possibly since decreasing estradiol has been better Leakage with intercourse: no Marinoff scale (rate pain): 0 Abuse: no, hit by first Menstrual History- Date of last period: before age 57 (started at age of 19), runner - so many years of of not having it - Number of pregnancies: 6, four miscarriages before figured out low thyroid Number of deliveries: 2 (age 42 and 44) Vaginal or : c- section Tearing or episiotomy: 10 cm with first child Other- Pain with gynecological exam: no Any chronic yeast infections: no Chronic UTIs: just this last year STIs: positive HPV pap 2 years ago, then neg a year later Vaginal dryness: yes Meds taken for bladder or diuretics: Synthroid, vitamins Surgical PMHx- tubal ligation, right breast implant from scoliosis due to turning on sternum PMHx- osteoporosis, squamous cell skin cancer (removed) Orthopedic issues-scoliosis, previous right wrist fracture Pain Comments Today: Ribs - cough lay on it 4/10 on a 0-10 pain scale with 10 = extreme pain Current Work Status Retired Occupation retired NICU and wellness nurse Precautions Weight Bearing Status Full Weight Bearing Therapy Limitations/Systems Review Not Limited Objective Other/Pertinent Objective Movement screen- SLS: WNL Lumbar Posture: decreased lordosis Pelvic Posture (ASIS/PSIS sup/ inf, rotation Ant/Pst): WNL Sacral Posture (forward/ backward torsion): WNL Hip PROM: WNL LUMBAR ROM: WNL, min dec, mod dec, sev dec Flexion: WNL Extension: min dec Right Sidebend: min dec Left Sidebend: WNL Right Rotation: min dec Left Rotation: WNL LE MMT Hip flexion: R 5/5 L 5/5 Hip Extension: R 5/5 L 5/5 Hip abduction: R 4+/5 L 4+/5 knee extension: R 5/5 L 5/5 Knee Flexion: R 5/5 L 5/5 Other tests: Coordination: can do pelvic tilt Breathing: chest/neck breathing (broken ribs on right) SPECIAL TESTS Straight leg raise: WNL Crossed straight leg raise: WNL Slump test: neg Quadrant test: neg SI tests Distraction: neg Thigh thrust: neg Gaenstens: neg Compression: neg Sacral Thrust: neg HIP (R/L): FRANCES: neg FADIR: neg Leary compression Test: neg Functional Test Performed & Score Pelvic Floor Questionnaire 8/45 Bladder 2/34 Bowel 0/15 Prolapse 0/40 Sexual function Assessment Assessment/Impression Pt is a 69 year old female who presents with concerns of pelvic floor dysfunction. Patient also has notable objective findings including limited ROM, tenderness to palpation, and decreased strength which are also likely contributing to the problem. Patient is a good candidate for skilled therapy to target deficits described above. Skilled PT intervention is necessary for use of therapeutic exercise manual therapy, neuromuscular re- education, gait training, and therapeutic activity. Functional impairments include difficulty with: standing, walking, exercising, and ADLS. See appropriate sections of PT eval for complete list of goals and POC. D/C plan and criteria is for pt to achieve the goals as listed below or until max rehab potential is met. Pt was agreeable with plan of care and goals established. Primary Functional Limitations standing walking exercising ADLS Plan of Care Rehabilitation Potential Good Physical Therapy Goals URINE INCONTINENCE / WEAKNESS GOALS STG (within 4-6 weeks) 1) Pt will demonstrate proper coordination of motor recruitment patterns for PF then TA activation during isometric activation while maintaining diaphragmatic breathing pattern 2)Pt will recall at least 4 strategies to improve pressure management in order to reduce instances of incontinence outside PT sessions 3) Pt will report reduced urinary leakage episodes no more than once per day for improved health of vaginal tissues LTG (within 10-12 weeks) 1) Pt will demonstrate proper coordination of motor recruitment patterns for PF then TA activation during dynamic UE/LE movements in all postures while maintaining diaphragmatic breathing pattern 2)Pt will demonstrate ability to complete at least 10 quick contractions of PFM with full relaxation between reps in order to reduce incontinence with increases in IAP 3) Pt will demonstrate improved PFM contraction of at least 4/5 on Laycock scale 4) Pt will report reduced urinary leakage episodes no more than two per week for improved health of vaginal tissues 5)Pt will report absent urinary leakage with cough, sneeze, jump. 6) Pt will demonstrate PFQ subscale score 50> for improved quality of life. Coordination/Communication With Referral Source Treatment Plan/Direct Interventions Manual Therapy,Neuromuscular Re-ed,Therapeutic Activities, Therapeutic Exercises Patient Will Be Discharged From Therapy Independently Progressing Evaluation Billing Untimed Code Treatment Minutes 50 Complexity Low Certification Information Provider Signature Required Yes Provider Signature Shows Agreement With POC & Medical Necessity Physician NPI Number Write NPI# Here Physician Comment/Change : Physician Signature & Date Requested Please Sign/Date Here
== END 2025-07-07 16:36 | disposition home or self-care (01) ==
PROVIDERS: PCP Family Medicine; Visit Provider Family Medicine
DX: M62.89 Other specified disorders of muscle (principal); Z51.89 Encounter for other specified aftercare
CPT/HCPCS: 97110; 97161; 97530

== ENCOUNTER 2025-05-14 08:48 | Outpatient (CLI) | payer MEDICARE, BC, SELFPAY | END 2025-05-14 08:49 | disposition home or self-care (01) | LOC: RAD 08:50 | PROVIDERS: PCP Family Medicine; Visit Provider Family Medicine | DX: I49.9 Cardiac arrhythmia, unspecified (principal); I34.0 Nonrheumatic mitral (valve) insufficiency; I07.1 Rheumatic tricuspid insufficiency | CPT/HCPCS: 93306 ==

== ENCOUNTER 2025-05-30 09:51 | Outpatient (CLI) | payer MEDICARE, BC, SELFPAY | END 2025-05-30 09:52 | disposition home or self-care (01) | LOC: NFLDREF 06-02 08:29 | PROVIDERS: PCP Family Medicine; Referring Provider Family Medicine; Visit Provider Family Medicine | DX: I51.7 Cardiomegaly (principal); I49.9 Cardiac arrhythmia, unspecified | CPT/HCPCS: 80048 ==